=== PATIENT | male | born 1965 | race Caucasian/White ===

== ENCOUNTER 2019-08-01 09:51 | Emergency (ER) | payer OTHER ==
[~2019-08-01] VITALS: Ht 188 cm; Wt 130.3 kg
[~2019-08-01 09:51] MED LIST: CITA40TA PO; FLEX10TA2 PO; HYZAAR PO; MAPA500T17 PO; OMEP20CA3 PO; OXYC1TAB23 PO
[2019-08-01] MEDS ORDERED: LISI (10:01)
[2019-08-01] MEDS ORDERED: AMLO25TA PO (10:01)
[2019-08-01] MEDS ORDERED: HCTZ (10:01)
[2019-08-01 11:25] LABS: BASO % 0.4 % (0.0-1.0); EOS # 0.2 10^3/uL (0.0-0.5); EOS % 2.8 % (0.0-3.0); HEMATOCRIT 45.3 % (42.0-52.0); HEMOGLOBIN 14.7 g/dl (13.5-17.5); LYMPH # 1.7 10^3/uL (1.5-5.0); LYMPH % 25.4 % (24.0-44.0); MEAN CORPUSCULAR HEMOGLOBIN 28.8 pg (27.0-33.0); MEAN CORPUSCULAR HGB CONC 32.5 g/dl (32.0-36.5); MEAN CORPUSCULAR VOLUME 88.8 fl (80.0-96.0); MONO # 0.7 10^3/uL (0.0-0.8); MONO % 10.5 % (0.0-5.0); NEUTROPHILS # 4.1 10^3/uL (1.5-8.5); NEUTROPHILS % 60.6 % (36.0-66.0); PLATELET COUNT, AUTOMATED 254 10^3/uL (150-450); WHITE BLOOD COUNT 6.8 10^3/uL (4.0-10.0)
[2019-08-01 11:55] LABS: BLOOD UREA NITROGEN 12 MG/DL (7-18); CALCIUM LEVEL 8.9 MG/DL (8.5-10.1); CARBON DIOXIDE LEVEL 28 MEQ/L (21-32); CHLORIDE LEVEL 106 MEQ/L (98-107); CREATININE FOR GFR 0.99 MG/DL (0.70-1.30); GLOMERULAR FILTRATION RATE > 60.0 (>56); GLUCOSE, FASTING 95 MG/DL (70-100); POTASSIUM SERUM 3.7 MEQ/L (3.5-5.1); SODIUM LEVEL 140 MEQ/L (136-145)
--- NOTE | 2019-08-01 12:13 | REP ---
SCROTAL ULTRASOUND: Real-time sonographic evaluation of the scrotum and contents performed. Testicles are normal in size and echotexture, right testicle measuring 5.2 x 2.7 x 3.4 cm an left testicle 5.2 x 2.1 x 2.9 cm. There is no testicular mass or torsion. Blood flow is seen in each testicle with duplex Doppler evaluation. In the right epididymis, there appear to be a 5 cyst. In the head of the left epididymis, there appears to be a 2 mm cyst. A few tiny calcifications are seen in each testicle. There are small bilateral hydroceles. IMPRESSION: No evidence of testicular mass or torsion. Small bilateral hydroceles. Electronically Signed by Sonido Carlson MD 08/03/2019 11:43 A
[2019-08-01] MEDS ORDERED: KETOROLAC 60 MG/2 ML VIAL (J1885) IM ONE (12:45)
--- NOTE | 2019-08-01 13:43 | REP ---
CT of the abdomen and pelvis without IV and oral contrast: There are no comparisons. The visualized lung espino are unremarkable. The unenhanced hepatic parenchyma, gallbladder, pancreas and spleen are unremarkable. The adrenals are unremarkable. There are no renal calculi. There is no hydronephrosis. No perinephric stranding. There are no ureteral or bladder calculi. The abdominal aorta is unremarkable. There is no retroperitoneal adenopathy or mass. The bowel and mesentery are unremarkable. Pelvis: The appendix is unremarkable. The bladder is unremarkable. There is no ascites or adenopathy. There is surgical fusion of the lumbar spine from L3-L5. Impression: There are no renal, ureteral or bladder calculi. There is no hydronephrosis or perinephric stranding. There is surgical fusion of the lumbar spine from L3-L5. There is degenerative disc disease at L5 S1. Otherwise, negative CT of the abdomen and pelvis. Electronically Signed by Sonido Arana MD 08/01/2019 01:35 P
[2019-08-01 14:05] VITALS: BP 134/87
== END 2019-08-01 14:06 | disposition home or self-care (01) ==
LOC: M ED 09:51
DX: N50.89 Other specified disorders of the male genital organs (principal); N50.811 Right testicular pain; N43.3 Hydrocele, unspecified; R31.9 Hematuria, unspecified; M51.37 Other intervertebral disc degeneration, lumbosacral region; I10 Essential (primary) hypertension; Z79.899 Other long term (current) drug therapy
CPT/HCPCS: 36415; 74176; 76870; 80048; 81001; 85025; 93976; 96372; 99284; J1885

== ENCOUNTER → 2021-12-12 | Outpatient (CLI) | payer BC, OTHER ==
[~2021-12-12] MED LIST changes: +AMLO25TA PO; +ERGO500029; +HCTZ; +LISI; +LISI10TA24 PO; +NAPR-837 PO; +TRAM50TA2 PO
[2021-12-12 11:16] LABS: BASO % 0.4 % (0.0-1.0); EOS # 0.3 10^3/uL (0.0-0.5); EOS % 2.3 % (0.0-3.0); HEMATOCRIT 44.3 % (42.0-52.0); HEMOGLOBIN 14.6 g/dl (13.5-17.5); LYMPH # 2.5 10^3/uL (1.5-5.0); LYMPH % 23.4 % (24.0-44.0); MONO % 9.3 % (2.0-8.0); NEUTROPHILS # 6.8 10^3/uL (1.5-8.5); NEUTROPHILS % 64.3 % (36.0-66.0); PLATELET COUNT, AUTOMATED 264 10^3/uL (150-450); RED BLOOD COUNT 4.87 10^6/uL (4.30-6.10); WHITE BLOOD COUNT 10.6 10^3/uL (4.0-10.0)
[2021-12-12 11:30] LABS: BLOOD UREA NITROGEN 8 MG/DL (7-18); CALCIUM LEVEL 9.9 MG/DL (8.5-10.1); CARBON DIOXIDE LEVEL 28 MEQ/L (21-32); CHLORIDE LEVEL 106 MEQ/L (98-107); CREATININE FOR GFR 0.97 MG/DL (0.70-1.30); GLOMERULAR FILTRATION RATE > 60.0 (>56); GLUCOSE, FASTING 85 MG/DL (70-100); POTASSIUM SERUM 4.2 MEQ/L (3.5-5.1); SODIUM LEVEL 141 MEQ/L (136-145)
== END ==
LOC: M WUC 09:12
PROVIDERS: ATTEND Physician Assistant
DX: R06.02 Shortness of breath (principal)

== ENCOUNTER → 2022-01-14 | Outpatient (REF) | LOC: M PLAIMG 09:42 | PROVIDERS: ATTEND Internal Medicine | DX: M50.30 Other cervical disc degeneration, unspecified cervical region (principal) ==

== ENCOUNTER → 2022-01-21 | Outpatient (CLI) | payer OTHER | LOC: M RAD 10:46 | PROVIDERS: ATTEND Physician Assistant Medical | DX: M25.819 Other specified joint disorders, unspecified shoulder (principal) ==

== ENCOUNTER 2022-12-04 23:14 | Emergency (ER) | payer BC, OTHER ==
[~2022-12-04] VITALS: Ht 188 cm; Wt 111.8 kg
[2022-12-05] MEDS ORDERED: diazePAM 10MG/2ML SYRINGE IM ONE (04:40)
[2022-12-05] MEDS ORDERED: MORPHINE 2 MG/ML 1ML VIAL IM ONE (04:40)
[2022-12-05] MEDS ORDERED: CYCL-707 PO (06:38)
[2022-12-05 06:49] VITALS: BP 128/72
== END 2022-12-05 06:47 | disposition home or self-care (01) ==
LOC: M ED 23:14
DX: S76.212A Strain of adductor muscle, fascia and tendon of left thigh, initial encounter (principal); I10 Essential (primary) hypertension; K21.9 Gastro-esophageal reflux disease without esophagitis; F43.10 Post-traumatic stress disorder, unspecified; F32.A Depression, unspecified; Z79.811 Long term (current) use of aromatase inhibitors; Z79.899 Other long term (current) drug therapy
CPT/HCPCS: 72190; 76870; 93976; 96372; 99283; J3360

== ENCOUNTER 2023-03-11 09:04 | Emergency (ER) | payer OTHER ==
[~2023-03-11] VITALS: Ht 185.4 cm; Wt 109.1 kg
[~2023-03-11 09:04] MED LIST changes: +CYCL-707 PO
[2023-03-11] MEDS ORDERED: BUSP10TA PO (09:20)
[2023-03-11] MEDS ORDERED: ASPIRIN 81MG CHEW TABLET PO ONE (09:40)
[2023-03-11 09:54] LABS: BASO % 0.3 % (0.0-1.0); EOS # 0.2 10^3/uL (0.0-0.5); EOS % 2.3 % (0.0-3.0); HEMATOCRIT 42.1 % (42.0-52.0); HEMOGLOBIN 14.1 g/dl (13.5-17.5); LYMPH # 1.8 10^3/uL (1.5-5.0); MEAN CORPUSCULAR HEMOGLOBIN 29.3 pg (27.0-33.0); MEAN CORPUSCULAR HGB CONC 33.5 g/dl (32.0-36.5); MEAN CORPUSCULAR VOLUME 87.3 fl (80.0-96.0); MONO # 0.6 10^3/uL (0.0-0.8); MONO % 9.3 % (2.0-8.0); NEUTROPHILS # 4.3 10^3/uL (1.5-8.5); PLATELET COUNT, AUTOMATED 241 10^3/uL (150-450); RED BLOOD COUNT 4.82 10^6/uL (4.30-6.10); WHITE BLOOD COUNT 6.9 10^3/uL (4.0-10.0)
[2023-03-11 10:21] LABS: BLOOD UREA NITROGEN 10 MG/DL (9-23); CALCIUM LEVEL 8.9 MG/DL (8.5-10.1); CARBON DIOXIDE LEVEL 29 MMOL/L (20-31); CHLORIDE LEVEL 104 MMOL/L (98-107); CPK CREATINE PHOSPHOKINASE 184 U/L (46-171); CREATININE FOR GFR 0.73 MG/DL (0.70-1.30); GLOMERULAR FILTRATION RATE > 60.0 (>56); GLUCOSE, FASTING 96 MG/DL (60-100); POTASSIUM SERUM 3.4 MMOL/L (3.5-5.1); SODIUM LEVEL 138 MMOL/L (136-145)
[2023-03-11 10:25] LABS: CK-MB VALUE MASS 1.3 NG/ML (<3.6)
[2023-03-11] MEDS ORDERED: ISOVUE-370 76% 100ML VIAL As Ordered ONE (10:47)
[2023-03-11] MEDS ORDERED: NAPR-837 PO (12:14)
[2023-03-11 12:31] VITALS: BP 143/89; TEMP 97.8; O2SAT 95
== END 2023-03-11 12:33 | disposition home or self-care (01) ==
LOC: M ED 09:04
DX: R07.9 Chest pain, unspecified (principal); I10 Essential (primary) hypertension; K21.9 Gastro-esophageal reflux disease without esophagitis; F43.10 Post-traumatic stress disorder, unspecified; F32.A Depression, unspecified; F10.10 Alcohol abuse, uncomplicated; Z79.811 Long term (current) use of aromatase inhibitors; Z79.1 Long term (current) use of non-steroidal anti-inflammatories (NSAID); Z79.899 Other long term (current) drug therapy
CPT/HCPCS: 36415; 71045; 71275; 80048; 82550; 82553; 84484; 85025; 93005; 93041; 94760; 99285; Q9967

== ENCOUNTER → 2025-06-14 | Outpatient (CLI) | payer OTHER ==
[~2025-06-14] MED LIST changes: +BUSP10TA PO
== END ==
LOC: M PLAIMG 09:31
PROVIDERS: ATTEND Nurse Practitioner Family
DX: M75.41 Impingement syndrome of right shoulder (principal); M19.011 Primary osteoarthritis, right shoulder; M25.711 Osteophyte, right shoulder; S46.011A Strain of muscle(s) and tendon(s) of the rotator cuff of right shoulder, initial encounter; X58.XXXA Exposure to other specified factors, initial encounter; Y92.9 Unspecified place or not applicable; Y93.9 Activity, unspecified; Y99.9 Unspecified external cause status